=== PATIENT | female | born 1985 | race Caucasian/White ===

== ENCOUNTER 2023-09-01 12:58 | Outpatient (OUT) | payer OTHER, SELFPAY ==
--- NOTE | 2023-09-01 13:01 | MM_ITS ---
Patient Name: CELINA REDDING MR#: [id number] : 1985 Exam Date: 09/01/2023 Ordering Doctor: BRIELLE Olmstead . RADIOLOGY REPORT PROCEDURE: MM TOMOSYNTHESIS DIAGNOSTIC BI COMPARISON: MG MAMM PRIYANK DIAG W CAD, 06/13/2015. INDICATIONS: Left Breast Mass N63.20,Left Breast Pain N64.4 Calculator Name NCI Breast Cancer Risk Assessment Tool 5 Year Breast Cancer Risk Not Reported. Lifetime Breast Cancer Risk Not Reported. Personal Breast Cancer No Personal Ovarian Cancer No Treatments None Family Cancers None LOCATION: [facility] BREAST COMPOSITION: Heterogeneously dense,which may obscure small masses. FINDINGS: DIAGNOSTIC CATEGORY 1--NEGATIVE. RIGHT BREAST: No significant suspicious finding. LEFT BREAST: No significant suspicious finding. No mammographic abnormality to correspond to the patient's breast pain. Further evaluation should be based on clinical and physical exam RECOMMENDATIONS: ROUTINE MAMMOGRAM AND CLINICAL EVALUATION IN 12 MONTHS. PLEASE NOTE: A NORMAL MAMMOGRAM DOES NOT EXCLUDE THE POSSIBILITY OF BREAST CANCER. A CLINICALLY SUSPICIOUS PALPABLE LUMP SHOULD BE BIOPSIED. Dictated by: Heath Dejesus MD on 09/01/2023 at 13:39 Approved by: Heath Dejesus MD on 09/01/2023 at 13:42
== END 2023-09-01 12:59 | disposition home or self-care (01) ==
LOC: MAMMO 12:58
PROVIDERS: Visit Provider Physician Assistant
DX: N64.4 Mastodynia (principal); N63.20 Unspecified lump in the left breast, unspecified quadrant
CPT/HCPCS: 77066; G0279

== ENCOUNTER 2023-12-14 22:04 | Outpatient (REF) | payer OTHER, SELFPAY ==
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
[2023-12-18 10:10] LABS: Age Gdln ACOG Testing Note (.); HPV Aptima Negative (Negative); IGP, Aptima HPV, rfx 16/18,45 Note (.)
== END 2023-12-14 22:05 | disposition home or self-care (01) ==
LOC: LAB 22:04
PROVIDERS: Visit Provider Obstetrics & Gynecology
DX: Z01.419 Encounter for gynecological examination (general) (routine) without abnormal findings (principal)
CPT/HCPCS: 87624; G0145

== ENCOUNTER 2024-12-19 12:07 | Outpatient (REF) | payer OTHER, SELFPAY ==
[2024-12-21 18:09] LABS: Age Gdln ACOG Testing Note (.); HPV Aptima Negative (Negative); IGP, Aptima HPV, rfx 16/18,45 Note (.)
== END 2024-12-19 12:08 | disposition home or self-care (01) ==
LOC: LAB 12:07
PROVIDERS: Visit Provider Obstetrics & Gynecology
DX: Z01.419 Encounter for gynecological examination (general) (routine) without abnormal findings (principal)
CPT/HCPCS: 87624; 88175

== ENCOUNTER 2024-12-28 10:17 | Outpatient (OUT) | payer OTHER, SELFPAY ==
--- NOTE | 2024-12-28 10:21 | MM_ITS ---
Patient Name: CELINA REDDING MR#: [id number] : 1985 Exam Date: 12/28/2024 Ordering Doctor: DR AUSTEN CHACKO . RADIOLOGY REPORT PROCEDURE: MM TOMOSYNTHESIS SCREENING BI COMPARISON: MM TOMOSYNTHESIS DIAGNOSTIC BI, 09/01/2023. MG MAMM PRIYANK DIAG W CAD, 06/13/2015. INDICATIONS: Screening Calculator Name NCI Breast Cancer Risk Assessment Tool 5 Year Breast Cancer Risk Not Reported. Lifetime Breast Cancer Risk Not Reported. Personal Breast Cancer No Personal Ovarian Cancer No Treatments None Family Cancers None LOCATION: [facility] BREAST COMPOSITION: There are scattered areas of fibroglandular density. FINDINGS: DIAGNOSTIC CATEGORY 1--NEGATIVE. RIGHT BREAST: No significant suspicious finding. LEFT BREAST: No significant suspicious finding. RECOMMENDATIONS: ROUTINE MAMMOGRAM AND CLINICAL EVALUATION IN 12 MONTHS. PLEASE NOTE: A NORMAL MAMMOGRAM DOES NOT EXCLUDE THE POSSIBILITY OF BREAST CANCER. A CLINICALLY SUSPICIOUS PALPABLE LUMP SHOULD BE BIOPSIED. Dictated by: Vance Guaman DO on 12/28/2024 at 16:12 Approved by: Vance Guaman DO on 12/28/2024 at 16:13
== END 2024-12-28 10:18 | disposition home or self-care (01) ==
LOC: MAMMO 10:17
PROVIDERS: Visit Provider Obstetrics & Gynecology
DX: Z12.31 Encounter for screening mammogram for malignant neoplasm of breast (principal)
CPT/HCPCS: 77063; 77067